=== PATIENT | female | born 1975 | race Caucasian/White ===

== ENCOUNTER → 2016-11-26 | Outpatient (CLI) | payer MEDICARE, MEDICAID ==
[~2016-11-26] MED LIST: CA C1TAB64 PO; CALC200T20 PO; CEFD300C2 PO; CHOL500014 PO; CYAN1TAB20 PO; FLUO40CA2 PO; FURO-92 PO; GEMF600T3 PO; HYDR10TA11 PO; LEVE750T37 PO; LEVO112T4 PO; LIOT5TAB3 PO; METF10002 PO; METF500T4 PO; MULT-464 PO; POTA10TA11 PO; PYRI25TA2 PO; SIMV40TA3 PO; SPIR50TA2 PO; TOPI200T6 PO; VANC1VIA3 PO
== END | disposition home or self-care (01) ==
LOC: CFH 08:57
PROVIDERS: ATTEND Family Medicine
DX: M25.512 Pain in left shoulder (principal); M79.622 Pain in left upper arm

== ENCOUNTER → 2017-04-30 | Outpatient (CLI) | payer MEDICARE, MEDICAID ==
[~2017-04-30] MED LIST changes: -CEFD300C2 PO; +CEFD300C37 PO; -CHOL500014 PO; +CHOL500045 PO
== END | disposition home or self-care (01) ==
LOC: ROC 06:38
PROVIDERS: ATTEND Radiology Radiation Oncology
DX: D32.0 Benign neoplasm of cerebral meninges (principal); E23.0 Hypopituitarism
CPT/HCPCS: G0463

== ENCOUNTER → 2018-03-18 | Outpatient (CLI) | payer MEDICARE, MEDICAID ==
[~2018-03-18] MED LIST changes: -METF500T4 PO; +METF500T5 PO; -SPIR50TA2 PO; +SPIR50TA4 PO
== END | disposition home or self-care (01) ==
LOC: ROC 09:05
PROVIDERS: ATTEND Radiology Radiation Oncology
DX: Z02.9 Encounter for administrative examinations, unspecified (principal)

== ENCOUNTER → 2018-04-15 | Outpatient (CLI) | payer MEDICARE, MEDICAID ==
[~2018-04-15] MED LIST changes: -GEMF600T3 PO; +GEMF600T4 PO; +METF500T17 PO; -METF500T5 PO
== END | disposition home or self-care (01) ==
LOC: ROC 14:12
PROVIDERS: ATTEND Radiology Radiation Oncology
DX: D32.0 Benign neoplasm of cerebral meninges (principal)
CPT/HCPCS: G0463

== ENCOUNTER 2020-10-19 10:55 | Emergency (ER) | payer MEDICARE, MEDICAID ==
[~2020-10-19] VITALS: Ht 167.6 cm; Wt 46.4 kg
[~2020-10-19 10:55] MED LIST changes: +GEMF-31 PO; -GEMF600T4 PO; +HYDR-3590 PO; -HYDR10TA11 PO; +LIOT5TAB11 PO; -LIOT5TAB3 PO; +SIMV40TA20 PO; -SIMV40TA3 PO
--- NOTE | 2020-10-19 11:17 | NUR ---
PT BIB EMS FROM A [facility]ARE HOME. THEY STATES SHE WAS MORE ALTERRED AND UNSTEADY TODAY THAN NORMAL. 2ND COVID SHOT YESTERDAY. SHE ALSO HAS SOME REDNESS AND DISCHARGE FROM THE RIGHT EYE. CAREGIVER AT BEDSIDE. SAID SHE IS MORE ALERT NOW THAN EARLIER THIS MORNING. PT RESTING COMFORTABLY WITH SP02, AND BP MONITORS IN PLACE. CALL LIGHT WITHIN REACHG.,
[2020-10-19 11:32] LABS: BASOPHILS % (AUTO) 1 % (0-1); EOSINOPHILS % (AUTO) 3 % (1-7); LYMPHOCYTES % (AUTO) 25 % (22-44); MEAN CORPUSCULAR HEMOGLOBIN 32.1 pg (27.0-34.8); MEAN CORPUSCULAR HGB CONC 33.1 g/dL (32.4-35.8); MEAN PLATELET VOLUME 8.7 fL (7.4-10.4); MONOCYTES % (AUTO) 8 % (2-9); NEUTROPHILS % (AUTO) 64 % (42-75); PLATELET COUNT 174 x10^3/uL (130-400); RED BLOOD COUNT 4.23 x10^6/uL (3.82-5.3); RED CELL DISTRIBUTION WIDTH 14.1 % (9.6-15.2)
[2020-10-19 11:36] LABS: MD NO
[2020-10-19 11:46] LABS: ALBUMIN 3.8 g/dL (3.4-5.0); ANION GAP 5 mmol/L (5-15); CALCIUM 8.8 mg/dL (8.5-10.1); CHLORIDE 119 mmol/L (98-107); CREATININE 0.98 mg/dL (0.55-1.02)
[2020-10-19 12:17] LABS: MICROSCOPIC NOT IND
--- NOTE | 2020-10-19 13:07 | NUR ---
PT BLOOD SUGAR 64, ADVISED MD. OFFERED SNACKS, JUICE AND SODA. PT DECLINED. THE CAREGIVER WILL CONTACT MOM TO SEE IF WE CAN GET HER TO DRINK SOME SPRITE.
[2020-10-19 13:56] VITALS: BP 98/72
== END 2020-10-19 13:59 | disposition home or self-care (01) ==
LOC: ED 13:53
DX: T88.1XXA Other complications following immunization, not elsewhere classified, initial encounter (principal); H10.021 Other mucopurulent conjunctivitis, right eye; R53.83 Other fatigue; R41.82 Altered mental status, unspecified; E11.649 Type 2 diabetes mellitus with hypoglycemia without coma; R42 Dizziness and giddiness; R51.9 Headache, unspecified
CPT/HCPCS: 36415; 80048; 81003; 82040; 85025; 99283